=== PATIENT | male | born 1965 | race Caucasian/White ===

== ENCOUNTER 2017-02-04 12:53 | Emergency (ER) | payer BC ==
[~2017-02-04] VITALS: Ht 175.3 cm; Wt 105.0 kg
[2017-02-04] MEDS ORDERED: FELODIPINE5 MG PO (13:13)
[2017-02-04] MEDS ORDERED: ALLERCLEAR10 MG PO (13:13)
[2017-02-04 16:40] VITALS: BP 132/78
== END 2017-02-04 16:38 | disposition home or self-care (01) ==
LOC: ED 12:53
DX: R07.89 Other chest pain (principal); R07.9 Chest pain, unspecified; I10 Essential (primary) hypertension; F17.200 Nicotine dependence, unspecified, uncomplicated; R00.2 Palpitations; R61 Generalized hyperhidrosis

== ENCOUNTER → 2017-05-13 | Day surgery (SDC) | payer BC ==
[~2017-05-13] MED LIST: ALLERCLEAR10 MG PO; FELODIPINE5 MG PO
== END ==
LOC: MSO 04-22 14:47
DX: Z12.11 Encounter for screening for malignant neoplasm of colon (principal); Z80.0 Family history of malignant neoplasm of digestive organs; D12.3 Benign neoplasm of transverse colon; K63.5 Polyp of colon; I10 Essential (primary) hypertension; F17.220 Nicotine dependence, chewing tobacco, uncomplicated; E78.5 Hyperlipidemia, unspecified; E66.9 Obesity, unspecified
CPT/HCPCS: 00810; J3010; J7030

== ENCOUNTER 2017-09-29 19:34 | Emergency (ER) | payer BC ==
[~2017-09-29] VITALS: Ht 175.3 cm; Wt 113.6 kg
[2017-09-29] MEDS ORDERED: ASPIRIN E.C. 8181 MG PO (19:46)
[2017-09-29 20:48] LABS: HEMATOCRIT 43.7 % (42.0-52.0); HEMOGLOBIN 15.3 g/dL (13.5-18.0); MEAN CELL VOLUME 90 fl (78-100); MEAN CORPUSCULAR HEMOGLOBIN 32 pg (27-31); MEAN CORPUSCULAR HGB CONC 35 g/dL (33-37); MEAN PLATELET VOLUME 10.1 fl (7.4-10.4); PLATELET COUNT 246 K/mm3 (130-400); RED BLOOD COUNT 4.86 M/mm3 (4.20-5.60); RED CELL DISTRIBUTION WIDTH 12.2 % (11.5-14.5); WHITE BLOOD COUNT 12.2 K/mm3 (4.8-10.8)
[2017-09-29 21:01] LABS: ALBUMIN 4.3 g/dL (3.5-5.0); BUN/CREATININE RATIO 9.5 (6.0-26.0); CALCIUM 9.9 mg/dL (8.4-10.2); POTASSIUM 3.7 mmol/L (3.6-5.0); TOTAL BILIRUBIN 0.4 mg/dL (0.2-1.3); TOTAL PROTEIN 7.4 g/dL (6.3-8.2)
[2017-09-29 21:06] LABS: LYMPHOCYTE 7 % (20-51); MONOCYTE 7 % (3-10); NEUTROPHILS 86 % (42-75)
[2017-09-29 21:20] LABS: URINE APPEARANCE HAZY; URINE COLOR YELLOW; URINE PROTEIN(semi-quant) TRACE mg/dL (NEGATIVE)
[2017-09-29 21:21] LABS: URINE BILIRUBIN NEGATIVE (NEGATIVE); URINE BLOOD 250 ery/uL (NEGATIVE); URINE GLUCOSE NEGATIVE (NEGATIVE); URINE KETONE NEGATIVE (NEGATIVE); URINE LEUKOCYTE ESTERASE NEGATIVE (NEGATIVE); URINE MUCUS PRESENT (NOT PRESENT); URINE NITRATE NEGATIVE (NEGATIVE); URINE UROBILINOGEN NORMAL (NORMAL)
[2017-09-29 23:15] VITALS: BP 110/61
== END 2017-09-29 23:15 | disposition home or self-care (01) ==
LOC: ED 19:34
PROVIDERS: Family Medicine
DX: N20.1 Calculus of ureter (principal); E27.8 Other specified disorders of adrenal gland; I10 Essential (primary) hypertension; Z79.82 Long term (current) use of aspirin
CPT/HCPCS: J0595; J1885; J2405; J7030

== ENCOUNTER → 2018-07-31 | Outpatient (CLI) | payer BC ==
[~2018-07-31] MED LIST changes: +ASPIRIN E.C. 8181 MG PO
[2018-07-31 11:25] LABS: CALCIUM 9.3 mg/dL (8.4-10.2); POTASSIUM 4.4 mmol/L (3.6-5.0)
== END ==
LOC: LAB 11:02
PROVIDERS: Urology
DX: N20.1 Calculus of ureter (principal)